=== PATIENT | female | born 1955 | race Caucasian/White ===

== ENCOUNTER 2016-11-15 16:15 | Emergency (ER) | payer OTHER ==
[~2016-11-15] VITALS: Ht 167.6 cm; Wt 85.3 kg
[2016-11-15 17:51] VITALS: BP 157/62
== END 2016-11-15 17:53 | disposition home or self-care (01) ==
LOC: ER 16:15
DX: M79.89 Other specified soft tissue disorders (principal); M79.661 Pain in right lower leg; E11.9 Type 2 diabetes mellitus without complications; E78.00 Pure hypercholesterolemia, unspecified; Z88.8 Allergy status to other drugs, medicaments and biological substances